=== PATIENT | male | born 2000 | race Caucasian/White ===

== ENCOUNTER 2018-02-14 22:43 | Emergency (ER) | payer OTHER ==
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
[2018-02-14] MEDS ORDERED: NS 1,000 ML IV ONE (23:03)
[2018-02-14] MEDS ORDERED: ONDANSETRON 4 MG/2 ML VIAL IVP ONE (23:03)
[2018-02-14 23:10] LABS: PLATELET COUNT 207 10^3/uL (150-400)
[2018-02-14 23:18] LABS: INR 0.93 (0.83-1.16); PROTIME(PATIENT) 12.7 SEC (12.0-15.0)
[2018-02-14] MEDS ORDERED: IOPAMIDOL (ISOVUE 370) 100 ML BTL IV ONE (23:45)
[2018-02-15 02:54] VITALS: BP 106/59
== END 2018-02-15 03:46 ==
DX: M25.512 Pain in left shoulder (principal); R07.81 Pleurodynia; R10.9 Unspecified abdominal pain; E86.9 Volume depletion, unspecified; V48.7XXA Person on outside of car injured in noncollision transport accident in traffic accident, initial encounter; Y99.8 Other external cause status
CPT/HCPCS: 96374; A4565; G0480; J2270; J2405; Q9967